=== PATIENT | male | born 2000 | race Caucasian/White ===

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

== ENCOUNTER 2019-07-20 23:54 | Emergency (ER) | payer OTHER ==
[~2019-07-20] VITALS: Ht 175.3 cm; Wt 80.9 kg
[2019-07-20 23:54] VITALS: BP 149/72
[2019-07-21] MEDS ORDERED: ALBUTEROL SULFATE 2.5 MG/0.5 ML INH NEB SOLN NEB ONE ×2 (02:00→02:30)
[2019-07-21] MEDS ORDERED: PROAAER10 INH (02:28)
[2019-07-21] MEDS ORDERED: OSEL75CA PO (23:00)
[2019-07-21] MEDS ORDERED: TESS100C PO (23:00)
[2019-07-21] MEDS ORDERED: PRED20TA PO (23:00)
== END 2019-07-21 02:46 | disposition home or self-care (01) ==
LOC: M ED 23:54
DX: J45.901 Unspecified asthma with (acute) exacerbation (principal); Z88.1 Allergy status to other antibiotic agents

== ENCOUNTER 2019-07-21 21:08 | Emergency (ER) | payer OTHER ==
[~2019-07-21] VITALS: Ht 175.3 cm; Wt 81.8 kg
[~2019-07-21 21:08] MED LIST: PROAAER10 INH
[2019-07-21] MEDS ORDERED: ACETAMINOPHEN TAB 650MG DOSE (2X325MG) As Ordered ONE (21:12)
[2019-07-21] MEDS ORDERED: ACETAMINOPHEN TAB 650MG DOSE (2X325MG) PO ONE (21:15)
[2019-07-21 21:56] LABS: INFLUENZA A AMPLIFICATION NEGATIVE (NEGATIVE); INFLUENZA B AMPLIFICATION POSITIVE (NEGATIVE)
[2019-07-21] MEDS ORDERED: IBUPROFEN 800 MG TAB PO ONE (22:30)
[2019-07-21] MEDS ORDERED: predniSONE 20 MG TAB PO ONE (22:45)
[2019-07-21] MEDS ORDERED: BENZONATATE 100 MG CAP PO ONE (22:45)
[2019-07-21] MEDS ORDERED: OSELTAMIVIR PHOSPHATE 75 MG CAP (TAMIFLU) PO ONE (22:45)
[2019-07-21] MEDS ORDERED: TESS100C PO (23:00)
[2019-07-21] MEDS ORDERED: PRED20TA PO (23:00)
[2019-07-21] MEDS ORDERED: OSEL75CA PO (23:00)
[2019-07-21 23:11] VITALS: BP 122/57
--- NOTE | 2019-07-22 02:02 | REP ---
Clinical: Cough and fever . Comparison: 08/31/2014 . Technique: PA and lateral. Findings: The mediastinum and cardiac silhouette are normal. The lung [place] are clear and without acute consolidation, effusion, or pneumothorax. The skeletal structures are intact and normal. Impression: 1. No acute cardiopulmonary process. Electronically Signed by Garfield Dewitt MD 07/22/2019 01:54 A
== END 2019-07-21 23:14 | disposition home or self-care (01) ==
LOC: M ED 21:08
DX: J11.1 Influenza due to unidentified influenza virus with other respiratory manifestations (principal); J45.909 Unspecified asthma, uncomplicated; Z88.1 Allergy status to other antibiotic agents

== ENCOUNTER → 2020-05-24 | Outpatient (CLI) | payer SELFPAY ==
[~2020-05-24] MED LIST changes: +OSEL75CA PO; +PRED20TA PO; +TESS100C PO
== END ==
LOC: M LABSMTC 11:53
PROVIDERS: ATTEND Pediatrics
DX: Z20.828 Contact with and (suspected) exposure to other viral communicable diseases (principal)

== ENCOUNTER 2025-05-11 21:24 | Emergency (ER) | payer BC, SELFPAY ==
[~2025-05-11] VITALS: Ht 177.8 cm; Wt 92.7 kg
[2025-05-12] MEDS: TETANUS/DIPHTH/ACEL. PERTUSSIS 0.5 ML SYR IM.IMMUN ONE (01:49)
[2025-05-12] MEDS: NEOSPORIN TOP OINT 15 GM TOP ONE (01:50)
[2025-05-12] MEDS: ACETAMINOPHEN 500 MG TAB PO ONE (01:50)
[2025-05-12 02:00] VITALS: BP 154/74; TEMP 97.6; O2SAT 99
== END 2025-05-12 02:37 | disposition home or self-care (01) ==
LOC: M ED 21:24
DX: S60.412A Abrasion of right middle finger, initial encounter (principal); Y92.019 Unspecified place in single-family (private) house as the place of occurrence of the external cause; Y93.9 Activity, unspecified; Y99.9 Unspecified external cause status; W26.0XXA Contact with knife, initial encounter; J45.909 Unspecified asthma, uncomplicated; F10.10 Alcohol abuse, uncomplicated; Z23 Encounter for immunization; Z88.1 Allergy status to other antibiotic agents; Z79.51 Long term (current) use of inhaled steroids; Z79.52 Long term (current) use of systemic steroids; Z79.899 Other long term (current) drug therapy